=== PATIENT | male | born 1955 | race Caucasian/White ===

== ENCOUNTER 2024-05-12 02:25 | Inpatient (IN) | payer MEDICARE, OTHER, SELFPAY ==
[2024-05-12] VITALS (11 sets, daily range): BP systolic 111–176; BP diastolic 57–102; BMI 30.1; BMI 29.8
[2024-05-12 00:29] LABS: % Basophils 0.1 % (0-2); % Eosinophils 0.1 % (0-6); % Immature Granulocytes 0.9 % (0-0.5); % Lymphocytes 6.3 % (20.5-51.1); % Monocytes 5.8 % (1.7-9.3); % Neutrophils 86.8 % (42.2-75.2); Absolute Immature Granulocytes 0.1 10^3/uL (0-0.05); Absolute Lymphocytes 0.9 10^3/uL (1.2-3.4); Absolute Monocytes 0.8 10^3/uL (0.1-0.6); Absolute Neutrophils 12.2 10^3/uL (1.4-6.5); Hematocrit 42.2 % (39.0-52.0); Hemoglobin 15.1 g/dL (13.0-18.0); Mean Corp Hgb Conc. 35.8 g/dL (33.0-37.0); Mean Corpuscular Hgb 29.8 pg (27.0-31.0); Mean Corpuscular Volume 83.4 fL (80.0-94.0); Mean Platelet Volume 10.9 fL (7.4-10.4); Nucleated Red Blood Cells % 0 % (-); Platelet Count 185 10^3/uL (130-400); Red Blood Cell Count 5.06 10^6/uL (4.70-6.10); Red Cell Dist. Width 13.4 % (11.5-14.5)
--- NOTE | 2024-05-12 00:29 | ED.GENMED ---
History of Present Illness
General
Chief Complaint: Chest Pain
Source: patient and family
Exam Limitations: none
Time Seen by Provider: 05/12/24 00:19
Nursing documentation reviewed up to this point in time: agreed with
History of Present Illness
History of Present Illness:
Pleasant 68-year-old male that presents with chest pain and abdominal pain that began around 7 PM this evening. He did start to vomit. States that the pain is sharp and almost tearing in nature. Denies fever or chills. States he was feeling
normal prior.
Patient in severe distress and diaphoretic. Concern for AAA/thoracic dissection
Past History
Past History
ED Past Medical History: Other (Crohns ds)
Social History
Tobacco: Non-smoker
Alcohol: Occasional
Personal:
Living: with family
Employment: Employed
Phy Exam
General Physical Exam
General Presentation: moderate distress and severe distress
General Skin: warm and diaphoretic
General Habitus: normal
General Mental: alert
General Hydration: appears well hydrated
ENT Exam
ENT Exam: EOMI, pharynx normal, neck supple and normocephalic
Eye Exam
Eye Exam: PERRL, cornea clear and conjunctiva normal
Cardiovascular Exam
Cardiovascular Exam: regular rate/rhythm and no edema
Pulmonary Exam
Pulmonary Exam: lungs clear, no respiratory distress, no rales, no crackles, no rhonchi, no stridor, no wheezing and no cough
Gastrointestinal Exam
Gastrointestinal Exam: normal bowel sounds and tender
Palpation: generalized: Mild tenderness and Moderate tenderness
Neurological Exam
Neurological Exam: alert, oriented x3, no motor deficits and speech normal
Musculoskeletal Exam
Musculoskeletal Exam: full ROM and no edema
Skin Exam
Skin Exam: normal color, warm/dry, no rash and no petechia
Psychiatric Exam
Psychiatric Exam: normal mood/affect
Scores
Heart Score for Chest Pain Patients
STEMI patient?: Not applicable
Course
Orders/Labs/Results
Orders:
Orders
05/12/24 00:21
Cardiac Monitoring- Treatment ONCE
EKG- Treatment ONCE
05/12/24 00:22
CT Chest/abd/pelvis Angio W/wo Urgent
Comment:
Reason For Exam: pain in chest abd, tearing
05/12/24 00:24
Complete Blood Count/With Diff Urgent
Comprehensive Metabolic Panel Urgent
Magnesium Urgent
NT-proBNP Urgent
PTT Urgent
Prothrombin Time Urgent
Troponin I Q3H
05/12/24 00:29
Morphine Sulfate 4 mg IV NOW STA
Ondansetron Injectable [Zofran] 4 mg IV NOW STA
05/12/24 00:30
Electrocardiogram (*1) Q3H
Reason for Study: Chest Pain
05/12/24 00:47
0.9% Sodium Chloride 1000 ml [Nss] 1,000 ml IV BOLUS
05/12/24 01:44
Lactic Acid Urgent
05/12/24 03:30
Electrocardiogram (*1) Q3H
Reason for Study: Chest Pain
Troponin I Q3H
Abnormal Lab Results
05/12/24
00:24
WBC 14.0 H 10^3/uL
(4.8-10.8)
MPV 10.9 H fL
(7.4-10.4)
Abs Immat Gran (auto) 0.1 H 10^3/uL
(0-0.05)
Absolute Neuts (auto) 12.2 H 10^3/uL
(1.4-6.5)
Absolute Lymphs (auto) 0.9 L 10^3/uL
(1.2-3.4)
Absolute Monos (auto) 0.8 H 10^3/uL
(0.1-0.6)
Immature Gran % 0.9 H %
(0-0.5)
Neutrophils % 86.8 H %
(42.2-75.2)
Lymphocytes % 6.3 L %
(20.5-51.1)
BUN 28 H mg/dl
(9-20)
Glucose 123 H mg/dl
(70-99)
Total Bilirubin 1.4 H mg/dl
(0.2-1.3)
05/12/24 00:24
05/12/24 00:24
Vital Signs
Initial and Last Documented VS:
Initial Vital Signs
Temp Pulse Resp BP Pulse Ox
97.8 F 78 20 176/84 97
05/12/24 00:17 05/12/24 00:17 05/12/24 00:17 05/12/24 00:17 05/12/24 00:17
Last Documented Vital Signs
Temp Pulse Resp BP Pulse Ox
97.8 F 78 17 176/98 96
05/12/24 00:17 05/12/24 01:00 05/12/24 01:00 05/12/24 01:00 05/12/24 01:00
*Critical Care Note
Total Time (30-74mins, 75-104mins- exclusive of procedures): Not Applicable
Update Note
Update Note:
Patient in severe chest and abdominal pain. Concern for AAA or thoracic dissection. Will go to CAT scan without lab work results. Will hydrate afterwards
05/12/2024 0143 AM; Chest:
No aortic dissection or other acute aortic syndromes. Thoracic aorta normal in caliber. No gross central PE.
Mild diffuse bronchial wall thickening with scattered areas of mucus plugging. No lung consolidation, pneumothorax or pleural effusion.
Abdomen and pelvis:
Small bowel obstruction with transition point anterior left lower quadrant, likely due to underlying adhesions versus bowel stenosis. Upstream fluid-filled small bowel dilated up to 5.2 cm. Completely decompressed distal small bowel. No
pneumatosis.
Trace free fluid in the right abdomen and pelvis. No abscess or free air.
Cholelithiasis.
No aortic dissection or other acute aortic syndromes. Abdominal aorta normal in caliber. Scattered atheromatous disease. Severe calcification and narrowing at origin of celiac arterial trunk.
Degenerative changes of the spine.
ED Attending Note
-
Portions of this chart may have been created with voice recognition software.� Occasional wrong word or��sound alike� substitutions may have occurred due to the inherent limitations of voice recognition software.
Discharge Plan
Departure
Patient Disposition: Admit
Date of Disposition: 05/12/24
Time of Disposition: 01:43
Admit to: Telemetry
Presentation/result/management discussed w/ accepting MD/DO: Hospitalist
Discharge Problem:
SBO (small bowel obstruction)
Prescriptions:
No Action
multivitamin [One Daily] 1 EACH tablet
1 ea PO DAILY
infliximab [Remicade] 100 MG/10 ML recon soln
IV .[id number]
lkcmnqfgmti-pvjzfazxf-jhn C-Mn 1 TAB tablet
1 tab PO DAILY
cholecalciferol (vitamin D3) [Vitamin D3] 1,000 UNIT capsule
1,000 unit PO DAILY
Referrals:
UNKNOWN - PT DOES,NOT KNOW [Family Provider] -
Interventions
Interventions:
*Risk Screen - Suicide Last Done: 05/12/24 00:15
*General Assessment Last Done: 05/12/24 00:15
*Neglect/Abuse Screening Last Done: 05/12/24 01:11
ED- Fall Risk Assessment Last Done: 05/12/24 00:15
*ED COVID-19 Vaccine History Last Done: 05/12/24 00:15
CC-Cqkylt-Wqzcdackay Assessment Last Done: 05/12/24 00:15
ED- Cardiac Assessment Last Done: 05/12/24 01:12
Discharge Date and Time
Print Language: SWEDISH
[2024-05-12] MEDS: ZOFRAN 4 MG IV ×2 (00:32→04:14)
[2024-05-12] MEDS: MORPHINE SULFATE 4 MG IV (00:32)
[2024-05-12 00:44] LABS: ALT (SGPT) 25 U/L (0-50); AST (SGOT) 26 U/L (17-59); Albumin 4.1 g/dl (3.5-5.0); Alkaline Phosphatase 56 U/L (38-126); Blood Urea Nitrogen 28 mg/dl (9-20); Calcium 9.5 mg/dl (8.4-10.2); Carbon Dioxide 26 mmol/L (22-30); Chloride 103 mmol/L (98-107); Estimated Creatinine Clearance 75 ml/min; Glucose 123 mg/dl (70-99); Potassium 4.6 mmol/L (3.5-5.1); Sodium 137 mmol/L (135-145); Total Bilirubin 1.4 mg/dl (0.2-1.3); Total Protein 6.7 g/dl (6.3-8.2); eGFR > 60.00
[2024-05-12 00:51] LABS: APTT 23.8 Sec (23.4-35.0); INR 1.03; PT 13.3 Sec (11.4-14.6)
[2024-05-12 00:56] LABS: NT-proBNP < 20.0 pg/ml; Troponin I < 0.012 ng/ml
[2024-05-12] MEDS: NSS 1000 IV ×3 (01:07→16:15)
--- NOTE | 2024-05-12 01:54 | HPS.HSE ---
Family Physician
-
Family Physician: NOT KNOW UNKNOWN - PT DOES
Chief Complaint
-
abdominal pain
History of Present Illness
68 M HX Crohn dz sen at ER for CP and abdominal pain
- acute onset started around 7 pm
- pain is described as sharp
- associated with bilious vomiting x 6
- Last BM; liquid around lunch time
- No fever and chills
- last BM
- HX SBO before
- No prior BW surgery
Medical History
Past Medical History
Past Medical History: Reports Other ((Crohns ds)
Past Surgical History: Reports None
Social History
Tobacco: Non-smoker
Alcohol: Occasional
Drug: None
Personal:
Living: With Family
Family History
Family History: Not pertinent
Allergies / Home Medications
Allergies reflects when Allergies were last updated in [employer].
Home Medications with original date entered in [employer]
Allergy/Medication List:
Allergies
Allergy/AdvReac Type Severity Reaction Status Date / Time
No Known Allergies Allergy Verified 05/12/24 00:17
Home Medications
cholecalciferol (vitamin D3) 25 mcg (1,000 unit) capsule (Vitamin D3) 1,000 unit PO DAILY 03/26/19
qvglpxwhriu-aesvzibgp-qqf C-Mn 750 mg-600 mg-55 mg-5 mg tablet 1 tab PO DAILY 03/26/19
infliximab 100 mg intravenous solution (Remicade) mg IV .[id number] 03/26/19
multivitamin (One Daily tablet) 1 ea PO DAILY 03/26/19
Review of Systems
-
Constitutional: Reports No Symptoms
EENT: Reports No Symptoms
Respiratory: Reports No Symptoms
Cardiac: Reports No Symptoms
Abdomen/GI: Reports Abdominal Pain, Nausea and Vomiting; Denies Diarrhea
: Reports No Symptoms
Musculoskeletal: Reports No Symptoms
Skin: Reports No Symptoms
Neurological: Reports No Symptoms
Endocrine: Reports No Symptoms
Hematologic/Lymphatic: Reports No Symptoms
Psych: Reports No Symptoms
Physical Exam
Vital Signs
Vital Signs
Temp Pulse Resp BP Pulse Ox
97.8 F 72 16 145/72 94
05/12/24 00:17 05/12/24 01:45 05/12/24 01:45 05/12/24 01:21 05/12/24 01:45
Physical Exam
General: Well Developed, Well Nourished, Comfortable and Appears in Distress
HEENT: NormoCephalic, Moist mucous membranes and Atraumatic
Respiratory: Clear
Cardiac: S1/S2 and Regular Rhythm; No Murmur or Rub
Breast: Deferred by me
GI: Soft, Non Distended and Tender (mild tenderness ); No Organomegaly
Rectal: Deferred by Provider
Musculoskeletal: No Clubbing, No Cyanosis and No Edema
Skin: No Rash
Neuro: AO x 3 and Nonfocal/grossly intact
Psych: Calm
Laboratory Results
-
05/12/24 00:24
05/12/24 00:24
Laboratory Results
PT 13.3 Sec (11.4-14.6) 05/12/24 00:24
INR 1.03 05/12/24 00:24
APTT 23.8 Sec (23.4-35.0) 05/12/24 00:24
Total Bilirubin 1.4 mg/dl (0.2-1.3) H 05/12/24 00:24
AST 26 U/L (17-59) 05/12/24 00:24
ALT 25 U/L (0-50) 05/12/24 00:24
Alkaline Phosphatase 56 U/L (38-126) 05/12/24 00:24
Troponin I < 0.012 ng/ml 06/23/24 00:24
Data Reviewed
-
CT Scan: Report Reviewed by me
Lab Data: Labs Reviewed by me
Impression/Plan
-
Reviewed VS: Afebrile , BP 148/82 --> 176/98
Data
WCC 14
Unremarkable CMP
TB 1.4
pro BNP < 20
05/12/24 CT AP
- SBO with transition point anterior left lower quadrant, likely due to underlying adhesions vs.bowel stenosis.
- Upstream fluid-filled small bowel dilated up to 5.2 cm.
- Completely decompressed distal small bowel.
- No pneumatosis.
Trace free fluid in the right abdomen and pelvis. No abscess or free air.
Cholelithiasis.
No aortic dissection or other acute aortic syndromes.
Abdominal aorta normal in caliber.
Scattered atheromatous disease.
Severe calcification and narrowing at origin of celiac arterial trunk.
Degenerative changes of the spine.
05/12/2024 CTA Chest:
No aortic dissection or other acute aortic syndromes.
Thoracic aorta normal in caliber.
No gross central PE.
Mild diffuse bronchial wall thickening with scattered areas of mucus plugging.
No lung consolidation, pneumothorax or pleural effusion.
NO PRIOR hospitalist admission:
ASSESSMENT & PLAN
Pending Rx reconciliation
SBO with transition point anterior left lower quadrant. Diff etiology : adhesions vs. bowel stenosis.
No prior HX BW surgery
HX SBO
- associated with bilious vomiting x 6
- Last BM; liquid around lunch time , no flatus since
- Upstream fluid-filled small bowel dilated up to 5.2 cm. Completely decompressed distal small bowel.
- No pneumatosis.
- Hemodynamically stable
- NPO and IVF
- PRN narcotic analgesia
- GS consult
HX Crohns dz on Remicade [id number]
DVT Px: LMWH
Code: Full
IP MS
[2024-05-12 02:09] LABS: Lactic Acid 0.8 mmol/L (0.7-2.0)
--- NOTE | 2024-05-12 03:57 | PTCARENOTE ---
Patient arrived from ED via stretcher, ambulated to bed with standby assist. Patient alert and oriented. Patient c/o severe abdominal pain and requesting pain medication PRN prior to even walking into room. Last dose PRN pain medication given in ED
at 0032, see MAR. Patient did not have relief. Will remain NPO per MD orders. Call mayo within reach, will ring for assist if needed. Will monitor.
[2024-05-12] MEDS: DILAUDID 0.5 MG IV ×3 (04:14→11:45)
--- NOTE | 2024-05-12 04:21 | PTCARENOTE ---
Patient c/o 08/29 'agonizing' pain to abdomen throughout. Patient is responding with groans and grunts, requesting pain medication at this time. Patient also verbalizing he is feeling nauseous with the amount of pain that he is in. Provided patient
with Zofran PRN and Dilaudid PRN per MD orders -- at this time patient is lying flat on his stomach in bed, snoring. IVFs initiated and maintained at this time. Call mayo is within reach. Will continue to monitor.
[2024-05-12 06:57] LABS: INR 1.01; PT 13.1 Sec (11.4-14.6)
[2024-05-12 07:05] LABS: Blood Urea Nitrogen 23 mg/dl (9-20); Calcium 8.5 mg/dl (8.4-10.2); Carbon Dioxide 28 mmol/L (22-30); Chloride 104 mmol/L (98-107); Estimated Creatinine Clearance 84 ml/min; Glucose 110 mg/dl (70-99); Potassium 4.4 mmol/L (3.5-5.1); Sodium 137 mmol/L (135-145); eGFR > 60.00
[2024-05-12 07:11] LABS: Hematocrit 42.2 % (39.0-52.0); Hemoglobin 14.4 g/dL (13.0-18.0); Mean Corp Hgb Conc. 34.1 g/dL (33.0-37.0); Mean Corpuscular Hgb 29.6 pg (27.0-31.0); Mean Corpuscular Volume 86.7 fL (80.0-94.0); Mean Platelet Volume 11.6 fL (7.4-10.4); Platelet Count 153 10^3/uL (130-400); Red Blood Cell Count 4.87 10^6/uL (4.70-6.10); Red Cell Dist. Width 13.2 % (11.5-14.5); White Blood Cell Count 14.3 10^3/uL (4.8-10.8)
[2024-05-12 07:14] LABS: Troponin I < 0.012 ng/ml
[2024-05-12 08:23] LABS: LDH 216 U/L (120-246)
[2024-05-12 08:32] LABS: Lactic Acid 0.6 mmol/L (0.7-2.0)
--- NOTE | 2024-05-12 08:55 | W.PN.HOSP.TC ---
Today's Communication/Plan
-
NPO/IVF
await surgery
consider NGT
increase Dilaudid frequency
Assessment / Plan
Assessment / Plan
pt is a 68 year old male
SBO with transition point anterior left lower quadrant--possibly due to adhesions or stricture from Crohn's acting as SBO--- associated with bilious vomiting x 6--Last BM; liquid around lunch time 05/11, no flatus since--Upstream fluid-filled small
bowel dilated up to 5.2 cm--Completely decompressed distal small bowel--NPO/IVF--may need NGT (will defer to surgery)--increase frequency of dilaudid--await surgery input
HX Crohns dz on Remicade [id number]
DVT proph
CODE STATUS -- FULL CODE
Anticipated Discharge: > 48 hours
Subjective/Interval History
-
Date of Service: May 12, 2024
pt appears in obvious discomfort
Objective Data
-
Labs:
Laboratory Results
05/12/24 05/12/24
00:24 06:15
WBC 14.0 H 14.3 H
Hgb 15.1 14.4
Hct 42.2 42.2
Plt Count 185 153
PT 13.3 13.1
INR 1.03 1.01
APTT 23.8
Sodium 137 137
Potassium 4.6 4.4
Chloride 103 104
Carbon Dioxide 26 28
BUN 28 H 23 H
Creatinine 1.0 0.9
Glucose 123 H 110 H
Calcium 9.5 8.5
Total Bilirubin 1.4 H
AST 26
ALT 25
Alkaline Phosphatase 56
Vital Signs:
max temp for 24 hours
05/12/24
03:59
Temp 97.9 F
Vital Signs
Temp Pulse Resp BP Pulse Ox
97.7 F 85 18 146/87 93
05/12/24 07:00 05/12/24 07:00 05/12/24 07:00 05/12/24 07:00 05/12/24 07:00
I&O
05/11/24 05/12/24 05/13/24
06:59 06:59 06:59
Intake Total 340 / 340
Balance 340 / 340
Review of Systems
-
All other systems: Reviewed and negative
Abdomen/GI: Reports Abdominal Pain and Nausea
Physical Exam
-
General: Well Developed, Well Nourished and Pain
HEENT: Normocephalic and Atraumatic
Respiratory: Clear to Auscultation; Negative Wheezes or Rhonchi
Cardiac: Regular Rhythm and S1/S2; Negative Murmur
GI: Tender and Distended; Negative Soft (firm) or Normal Bowel Sounds (hypoactive bowel sounds)
Musculoskeletal: No Clubbing, No Cyanosis and No Edema
Neuro: Awake
--- NOTE | 2024-05-12 10:03 | CON.GS ---
Medical History
-
Chief Complaint: abdominal pain
History of Present Illness:
Mr. Rose is a 68 yo male with a h/o OA, BPH and Crohn's disease on Remicade (LD one week ago) who presents with acute onset of severe mid to upper abdominal pain yesterday after eating ribs and chicken at a [employer]. He reports intractable vomiting with
onset of pain which caused him to present through the ED for evaluation. He currently denies nausea or vomiting but notes he had some nausea early this am. He notes that pain has improved with IV medications. On exam, he is not tender with minimal
distention. He denies fevers or chills. He reports that his last colonoscopy was some time ago and he is due. He notes that his last Crohn's flare was about 8-10 years ago (3 in his life time requiring hospitalization) and reports his symptoms felt
similar to this. He usually passes several stools qam at baseline which he was able to do yesterday; today, he notes that he has had no passage of stools or flatus.
Past Medical History
Past Medical History: Other (BPH, OA, Crohn's)
Past Surgical History: None
Social History
Tobacco: Non-Smoker
Alcohol: Occasional
Family History
Family History: Reviewed & Not Pertinent
Allergies / Home Medications
Allergy/AdvReac Type Severity Reaction Status Date / Time
No Known Allergies Allergy Verified 05/12/24 00:17
�Medication �Instructions �Recorded �Confirmed �Type
cholecalciferol (vitamin D3) 25 1,000 unit PO DAILY 03/26/19 03/26/19 History
mcg (1,000 unit) capsule (Vitamin
D3)
bxihzubbliq-cbzxaerrd-dyi C-Mn 750 1 tab PO DAILY 03/26/19 03/26/19 History
mg-600 mg-55 mg-5 mg tablet
infliximab 100 mg intravenous mg IV .[id number] 03/26/19 History
solution (Remicade)
multivitamin (One Daily tablet) 1 ea PO DAILY 03/26/19 03/26/19 History
Review of Systems
-
History Source: Patient
All other systems: Negative unless noted
A 10 point review of systems was completed, and was negative except as per HPI.
Physical Exam
Vital Signs
Temp Pulse Resp BP Pulse Ox
97.7 F 85 18 146/87 93
05/12/24 07:00 05/12/24 07:00 05/12/24 07:00 05/12/24 07:00 05/12/24 07:00
05/11/24 05/12/24 05/13/24
06:59 06:59 06:59
Actual Weight 96.814 kg
Body Mass Index (BMI) 29.8
Lab Results
05/12/24 06:15
05/12/24 06:15
WBC 14.3 10^3/uL (4.8-10.8) H 05/12/24 06:15
Hgb 14.4 g/dL (13.0-18.0) 05/12/24 06:15
Hct 42.2 % (39.0-52.0) 05/12/24 06:15
Plt Count 153 10^3/uL (130-400) 05/12/24 06:15
Abs Immat Gran (auto) 0.1 10^3/uL (0-0.05) H 05/12/24 00:24
Neutrophils % 86.8 % (42.2-75.2) H 05/12/24 00:24
Physical Exam
General: Well Developed and Well Nourished
HEENT: Moist Mucous Membranes
Respiratory: Non Labored Respirations
GI: Soft, Non Tender and Distended (mildy with some tympany to the upper abdomen)
Skin: Warm and Dry
Neuro: Awake and Alert
Psych: Calm
Assessment / Plan
-
Mr. Rose is a 68 yo male with a h/o OA, BPH and Crohn's disease well controlled on Remicade (LD one week ago) and no prior abdominal surgeries who presents with acute onset of severe mid to upper abdominal pain yesterday with nausea/vomiting. Last
BM yesterday, but currently denies passage of flatus. CT imaging reviewed with concern for small bowel obstruction with a transition point in the left lower quadrant and fecalization of the small bowel. CRP, LDH, Lactate are not elevated.
Leukocytosis present. Symptoms already improving, but still without passage of flatus. AFVSS.
--Keep NPO for bowel rest. If vomiting recurs would recommend placement of NGT
--Consult placed to GI, need to r/o Crohn's etiology
--Check SBFT with PO contrast
--IVF while NPO
--Medical management as per primary team
[2024-05-12] MEDS: TORADOL 10 MG IV (14:04)
--- NOTE | 2024-05-12 15:58 | CON.GI ---
Consultation
-
Date/Time Consultation Requested: 05/12/24 10:03am
Date/Time Consultation Performed: 05/12/24 3:58pm
Requesting Provider: Laura Cardenas
Performing Provider: Jeremy Perez
Reason for Consultation: SBO, hx Crohns
Medical History
Chief Complaint / HPI
Chief Complaint: SBO, hx Crohns
History of Present Illness:
Patient is a 60-year-old male with a history of Crohn's disease admitted with a small bowel obstruction. He was well until yesterday after eating ribs at his [employer] that were brought by a guest. Following that he developed severe epigastric
pain and vomiting. He began refluxing and tasting the ribs that he had just eaten. Prior to that he was at his baseline. He has a history of Crohn's disease diagnosed in 1994 involving the terminal ileum. He was initially managed with Asacol for
years that was decreased and then he stopped on his own. Following that he flared with abdominal pain and diarrhea. He was put on Humira which did not work. He was switched to Remicade and has been doing well for years on that. He does report
however that he has bowel movements multiple times during the day almost every hour that are loose. He states that this is his baseline. His last colonoscopy was 3 to 4 years ago[address] sees [address] Alvares at [place].
Past Medical History
Past Medical History: Other (Crohn's. BPH)
Past Surgical History: None
Social History
Tobacco: Non-Smoker
Alcohol: Occasional
Family History
Family History: Reviewed & Not Pertinent
Allergies / Home Medications
Allergy/AdvReac Type Severity Reaction Status Date / Time
No Known Allergies Allergy Verified 05/12/24 00:17
�Medication �Instructions �Recorded
cholecalciferol (vitamin D3) 25 1,000 unit PO DAILY 03/26/19
mcg (1,000 unit) capsule (Vitamin
D3)
rvumpexmjft-xwwctetsr-bqu C-Mn 750 1 tab PO DAILY 03/26/19
mg-600 mg-55 mg-5 mg tablet
infliximab 100 mg intravenous mg IV .[id number] 03/26/19
solution (Remicade)
multivitamin (One Daily tablet) 1 ea PO DAILY 03/26/19
Review of Systems
-
All other systems: A 12 pt ROS was Negative except as stated above in HPI
Vital Signs
Temp Pulse Resp BP Pulse Ox
97.7 F 85 18 146/87 96
05/12/24 07:00 05/12/24 07:00 05/12/24 07:00 05/12/24 07:00 05/12/24 08:30
Physical Exam
Exam
General: Well Developed and Well Nourished
HEENT: Normocephalic and Atraumatic
Respiratory: Non Labored Respirations
GI: Soft, Non Distended and Tender (mild, epigastric)
Results
WBC 14.3 10^3/uL (4.8-10.8) H 05/12/24 06:15
Hgb 14.4 g/dL (13.0-18.0) 05/12/24 06:15
Hct 42.2 % (39.0-52.0) 05/12/24 06:15
MCV 86.7 fL (80.0-94.0) 05/12/24 06:15
Plt Count 153 10^3/uL (130-400) 05/12/24 06:15
Absolute Neuts (auto) 12.2 10^3/uL (1.4-6.5) H 05/12/24 00:24
PT 13.1 Sec (11.4-14.6) 05/12/24 06:15
INR 1.01 05/12/24 06:15
APTT 23.8 Sec (23.4-35.0) 05/12/24 00:24
Sodium 137 mmol/L (135-145) 05/12/24 06:15
Potassium 4.4 mmol/L (3.5-5.1) 05/12/24 06:15
Chloride 104 mmol/L (98-107) 05/12/24 06:15
Carbon Dioxide 28 mmol/L (22-30) 05/12/24 06:15
BUN 23 mg/dl (9-20) H 05/12/24 06:15
Creatinine 0.9 mg/dL (0.7-1.3) 05/12/24 06:15
Calcium 8.5 mg/dl (8.4-10.2) 05/12/24 06:15
Total Bilirubin 1.4 mg/dl (0.2-1.3) H 05/12/24 00:24
AST 26 U/L (17-59) 05/12/24 00:24
ALT 25 U/L (0-50) 05/12/24 00:24
Alkaline Phosphatase 56 U/L (38-126) 05/12/24 00:24
Diagnostic Image Results:
Prior GI Procedures:
EGD:
Colonoscopy:
Assessment / Plan
-
Summary: 68yo male hx Crohn's presents with one day n/v, epigastric pain after eating ribs brought to his [employer] by a guest. CT shows SBO. No prior abd surgery. Prior to yesterday he was at his baseline- multiple loose stools per day on
Remicade for years.
Impression:
SBO
Crohn's disease reportedly involving TI. Followed by Dr Alvares
Recommendation:
The sudden onset of the symptoms seems unusual for a Crohn's flare.
He has no prior abdominal surgery, however, and mechanical small bowel obstruction is also a little unusual as well.
Nonetheless I would hold off on steroids or other Crohn's treatments at this time and continue management by general surgery.
Agree with small bowel follow-through which may be helpful.
Will follow
-
-
Thank you for consultation and allowing me to participate in the patient's care. Please call the information systems consultant GI physician during the after hours with any questions or concerns.
[2024-05-12] MEDS: LOVENOX 40 MG SC (18:16)
[2024-05-13] MEDS: NSS 1000 IV ×3 (00:33→20:43)
[2024-05-13] MEDS: TORADOL 10 MG IV (00:50)
[2024-05-13 06:00] VITALS: BMI 29.8
[2024-05-13 06:08] LABS: Hematocrit 37.2 % (39.0-52.0); Hemoglobin 12.7 g/dL (13.0-18.0); Mean Corp Hgb Conc. 34.1 g/dL (33.0-37.0); Mean Corpuscular Hgb 29.5 pg (27.0-31.0); Mean Corpuscular Volume 86.5 fL (80.0-94.0); Mean Platelet Volume 11.8 fL (7.4-10.4); Platelet Count 123 10^3/uL (130-400); Red Cell Dist. Width 13.3 % (11.5-14.5); White Blood Cell Count 6.1 10^3/uL (4.8-10.8)
[2024-05-13 06:27] LABS: ALT (SGPT) 14 U/L (0-50); AST (SGOT) 17 U/L (17-59); Albumin 2.6 g/dl (3.5-5.0); Alkaline Phosphatase 46 U/L (38-126); Blood Urea Nitrogen 20 mg/dl (9-20); Calcium 8.1 mg/dl (8.4-10.2); Carbon Dioxide 25 mmol/L (22-30); Chloride 107 mmol/L (98-107); Estimated Creatinine Clearance 94 ml/min; Glucose 86 mg/dl (70-99); Magnesium 2.1 mg/dl (1.6-2.3); Sodium 136 mmol/L (135-145); Total Bilirubin 1.5 mg/dl (0.2-1.3); Total Protein 4.7 g/dl (6.3-8.2); eGFR > 60.00
[2024-05-13 07:00] VITALS: BP 119/57
--- NOTE | 2024-05-13 07:08 | W.PN.GI.CBS2 ---
Today's Communication / Plan
-
Await return of bowel function
The sudden onset of the symptoms seems unusual for a Crohn's flare.
He has no prior abdominal surgery, however, and mechanical small bowel obstruction is also a little unusual as well.
Nonetheless I would hold off on steroids or other Crohn's treatments at this time. He is improving and may resolve with conservative management
Agree with small bowel follow-through.
F/U with Dr Alvares after d/c
Assessment / Plan
-
Summary: 68yo male hx Crohn's presents with one day n/v, epigastric pain after eating ribs brought to his [employer] by a guest. CT shows SBO. No prior abd surgery. Prior to yesterday he was at his baseline- multiple loose stools per day on
Remicade for years.
Impression:
SBO
Crohn's disease reportedly involving TI. Followed by Dr Alvares
Subjective
Subjective
Date of Service: May 13, 2024
Passing flatus. Feels gurggling in abdomen and feels need to pass BM soon
Objective
Data Reviewed
Laboratory Data:
Laboratory Results
05/13/24 05:24
05/13/24 05:24
Laboratory Results
PT 13.1 Sec (11.4-14.6) 05/12/24 06:15
INR 1.01 05/12/24 06:15
APTT 23.8 Sec (23.4-35.0) 05/12/24 00:24
Magnesium 2.1 mg/dl (1.6-2.3) 05/13/24 05:24
Total Bilirubin 1.5 mg/dl (0.2-1.3) H 05/13/24 05:24
AST 17 U/L (17-59) 05/13/24 05:24
ALT 14 U/L (0-50) 05/13/24 05:24
Alkaline Phosphatase 46 U/L (38-126) 05/13/24 05:24
Vital Signs and I&O:
Vital Signs
Temp Pulse Resp BP Pulse Ox
98.5 F 76 16 111/57 96
05/12/24 23:22 05/12/24 23:22 05/12/24 23:22 05/12/24 23:22 05/12/24 23:22
I&O
05/12/24 05/13/24 05/14/24
06:59 06:59 06:59
Intake Total 340 / 340 1200 / 1200
Balance 340 / 340 1200 / 1200
Physical Exam
Physical Exam
GI: Soft, Non Distended and Non Tender
--- NOTE | 2024-05-13 11:03 | W.PN.CRS1 ---
Today's Communication / Plan
-
clear liquids
SBFT
Assessment/Plan
-
68 yo male with a h/o Crohns disease and on Remicade for years, CT imaging reviewed with concern for small bowel obstruction with a transition point in the left lower quadrant and fecalization of the small bowel
WBC 6.1 from 14.3. Hb 12.7. Vitals normal.
- No acute surgical intervention
- SBFT ordered to assess anastomosis
- Advance diet to clears
- Appreciate GI input
- Pain control - Tylenol/Toradol/Diluadid
- OOB as tolerated
- Follow up with outpatient GI
Subjective Data
Subjective Data
Date of Service: May 13, 2024
Patient states he has flatus and small bowel movements. He feels overall much improved. He denies nausea or vomiting. He has very mild RLQ pain.
Objective Data
-
Vital Signs
Temp Pulse Resp BP Pulse Ox
97.9 F 70 18 119/57 95
05/13/24 07:00 05/13/24 07:00 05/13/24 07:00 05/13/24 07:00 05/13/24 07:00
Intake & Output
05/12/24 05/13/24 05/14/24
06:59 06:59 06:59
Intake Total 340 / 340 1200 / 1200
Balance 340 / 340 1200 / 1200
Intake:
IV fluids (Total) 300 / 300 1200 / 1200
IV piggybacks 40 / 40
Other:
Number of approximated MODERATE 2
amounts of urine
Lab Results
05/13/24 05:24
05/13/24 05:24
Physical Exam
-
General: No Acute Distress and AOx3
Abdomen: Soft, Non Distended and Non Tender (mild RLQ)
Skin: Warm and Dry
--- NOTE | 2024-05-13 13:35 | W.PN.HOSP.TC ---
Today's Communication/Plan
-
await CRS input as to when diet can be advanced
Assessment / Plan
Assessment / Plan
pt is a 68 year old male
SBO - Pt believes he has significantly improved past 24 hrs and would like his diet advanced, anxiously awaiting dc then to follow
call placed to Dr. Perez who deferred diet to CRS, then spoke with CRS and await their input on diet
WBC 14.0-->14.3-->6.1k
05/12 CT scan: 1. No evidence of aortic dissection, aortic aneurysm, or central pulmonary embolism.
2. Findings consistent with small bowel obstruction, transition point in the left lower quadrant. There is bowel wall thickening distal to the transition point, and fecalization of small bowel contents proximal to the transition point. Findings may
be related to inflammatory bowel obstruction (IBD), or less likely adhesions.
3. Small amount of free fluid adjacent to the liver and within the pelvis, likely reactive.
4. Mild prostatic enlargement.
5. Cholelithiasis without evidence of acute cholecystitis.
6. Fat-containing left inguinal hernia.
Small Bowel X-Ray: Small bowel transit time within the limits of normal at approximately 2 hours.
Mildly dilated mid to distal duodenum and proximal ileum, mid to distal ileum within the limits of normal in caliber, transition point difficult to determine likely located in the lower abdomen suggesting a minimal partial approximate mid small
bowel incomplete obstruction.
HX Crohns dz on Remicade [id number]
DVT proph
CODE STATUS -- FULL CODE
Anticipated Discharge: 24 - 48 hours
Subjective/Interval History
-
Date of Service: May 13, 2024
Pt feeling better, asking about advancing diet
Objective Data
-
Labs:
Laboratory Results
05/13/24
05:24
WBC 6.1
Hgb 12.7 L
Hct 37.2 L
Plt Count 123 L
Sodium 136
Potassium 4.0
Chloride 107
Carbon Dioxide 25
BUN 20
Creatinine 0.8
Glucose 86
Calcium 8.1 L
Total Bilirubin 1.5 H
AST 17
ALT 14
Alkaline Phosphatase 46
Vital Signs:
Vital Signs
Temp Pulse Resp BP Pulse Ox
97.9 F 70 18 119/57 95
05/13/24 07:00 05/13/24 07:00 05/13/24 07:00 05/13/24 07:00 05/13/24 07:00
I&O
05/12/24 05/13/24 05/14/24
06:59 06:59 06:59
Intake Total 340 / 340 1200 / 1200
Balance 340 / 340 1200 / 1200
Review of Systems
-
History Source: Patient, Physician (CRS) and Coordinated Provider
Constitutional: Reports No Symptoms
Respiratory: Reports No Symptoms
Cardiac: Reports No Symptoms
Abdomen/GI: Reports Abdominal Pain (markedly diminished) and Diarrhea (passing freq stool)
Genitourinary: Reports No Symptoms
Physical Exam
-
General: Well Developed, Well Nourished and No Apparent Distress
HEENT: Atraumatic and Moist Mucous Membranes
Respiratory: Clear to Auscultation; Negative Wheezes, Rales or Rhonchi
Cardiac: Regular Rhythm and S1/S2
GI: Soft, Normal Bowel Sounds, Tender and Distended (as per pt, significantly decreased past 24 hrs)
[2024-05-13 15:00] VITALS: BP 147/73
--- NOTE | 2024-05-13 15:59 | CM ---
Alert awake oriented patient who lives with his Dalila who lives in a 2 story home with 3 step to enter and 12 steps to bed and bathroom. He is independent in all activities of daily living.Offered VN he declined need.No adaptive devices.
No VN hx /No SNF hx
Pharmacy [facility]
PCP DR Lozada
PLAN Home no anticipated needs
[2024-05-13] MEDS: LOVENOX 40 MG SC (17:07)
[2024-05-13] MEDS: FLOMAX 0.400000000000000022 MG PO (20:22)
[2024-05-13 23:03] VITALS: BP 131/76
[2024-05-14] MEDS: NSS 1000 IV (03:28)
[2024-05-14 05:42] LABS: % Basophils 0.4 % (0-2); % Eosinophils 1.3 % (0-6); % Immature Granulocytes 0.7 % (0-0.5); % Monocytes 12.6 % (1.7-9.3); Absolute Eosinophils 0.1 10^3/uL (0-0.7); Absolute Lymphocytes 1.2 10^3/uL (1.2-3.4); Absolute Monocytes 0.7 10^3/uL (0.1-0.6); Absolute Neutrophils 3.6 10^3/uL (1.4-6.5); Hematocrit 37.7 % (39.0-52.0); Hemoglobin 12.9 g/dL (13.0-18.0); Mean Corp Hgb Conc. 34.2 g/dL (33.0-37.0); Mean Corpuscular Hgb 29.5 pg (27.0-31.0); Mean Corpuscular Volume 86.3 fL (80.0-94.0); Mean Platelet Volume 11.1 fL (7.4-10.4); Nucleated Red Blood Cells % 0 % (-); Platelet Count 134 10^3/uL (130-400); Red Blood Cell Count 4.37 10^6/uL (4.70-6.10); Red Cell Dist. Width 13.1 % (11.5-14.5); White Blood Cell Count 5.6 10^3/uL (4.8-10.8)
[2024-05-14 05:55] VITALS: BMI 29.1
[2024-05-14 06:07] LABS: Blood Urea Nitrogen 14 mg/dl (9-20); Calcium 8.3 mg/dl (8.4-10.2); Carbon Dioxide 29 mmol/L (22-30); Chloride 108 mmol/L (98-107); Estimated Creatinine Clearance 84 ml/min; Glucose 95 mg/dl (70-99); Potassium 3.6 mmol/L (3.5-5.1); Sodium 141 mmol/L (135-145); eGFR > 60.00
[2024-05-14 07:00] VITALS: BP 131/53
--- NOTE | 2024-05-14 07:09 | W.PN.GI.CBS2 ---
Today's Communication / Plan
-
Please see assessment and plan for details.
Assessment / Plan
-
1. Partial small bowel obstruction: Resolved, unclear cause, could have been related to underlying Crohn's disease, though again small bowel follow-through now without specific transition point, tolerating diet without difficulty. He will continue
Remicade per Dr. Alvares and low residue diet. He is okay to DC from GI standpoint.
We will sign off for now, please go back with any further questions.
Subjective
Subjective
Date of Service: May 14, 2024
Patient feeling well overall, tolerated diet without difficulty, having bowel movements, no significant abdominal pain.
Objective
Data Reviewed
Laboratory Data:
Laboratory Results
05/14/24 05:17
05/14/24 05:17
Laboratory Results
PT 13.1 Sec (11.4-14.6) 05/12/24 06:15
INR 1.01 05/12/24 06:15
APTT 23.8 Sec (23.4-35.0) 05/12/24 00:24
Magnesium 2.1 mg/dl (1.6-2.3) 05/13/24 05:24
Total Bilirubin 1.5 mg/dl (0.2-1.3) H 05/13/24 05:24
AST 17 U/L (17-59) 05/13/24 05:24
ALT 14 U/L (0-50) 05/13/24 05:24
Alkaline Phosphatase 46 U/L (38-126) 05/13/24 05:24
Vital Signs and I&O:
Vital Signs
Temp Pulse Resp BP Pulse Ox
98.1 F 79 18 131/76 97
05/13/24 23:03 05/13/24 23:03 05/13/24 23:03 05/13/24 23:03 05/13/24 23:03
I&O
05/13/24 05/14/24 05/15/24
06:59 06:59 06:59
Intake Total 1200 / 1200 2039
Balance 1200 / 1200 2039
Physical Exam
Physical Exam
General: NAD
Abdomen: normal bowel sounds, soft, no tenderness, no masses or bruits, no ascites
[2024-05-14] MEDS: FLOMAX 0.400000000000000022 MG PO (08:19)
--- NOTE | 2024-05-14 11:02 | W.PN.UPDATE ---
Update Note
Progress Note Update
Attempted to see patient but the patient was not present in the room. The patient is tolerating a low residue diet and white count is normal. From our standpoint okay to be discharged and must follow-up with Dr. Alvares with gastroenterology. No
plans for surgery.
--- NOTE | 2024-05-14 12:39 | W.PN.HOSP.TC ---
Today's Communication/Plan
-
dc to home
Assessment / Plan
Assessment / Plan
pt is a 68 year old male
SBO - Pt believes he has further significantly improved past 24 hrs and is tolerating his diet advanced, anxiously awaiting dc
WBC 14.0-->14.3-->6.1-->5.6k
05/12 CT scan: 1. No evidence of aortic dissection, aortic aneurysm, or central pulmonary embolism.
2. Findings consistent with small bowel obstruction, transition point in the left lower quadrant. There is bowel wall thickening distal to the transition point, and fecalization of small bowel contents proximal to the transition point. Findings may
be related to inflammatory bowel obstruction (IBD), or less likely adhesions.
3. Small amount of free fluid adjacent to the liver and within the pelvis, likely reactive.
4. Mild prostatic enlargement.
5. Cholelithiasis without evidence of acute cholecystitis.
6. Fat-containing left inguinal hernia.
Small Bowel X-Ray: Small bowel transit time within the limits of normal at approximately 2 hours.
Mildly dilated mid to distal duodenum and proximal ileum, mid to distal ileum within the limits of normal in caliber, transition point difficult to determine likely located in the lower abdomen suggesting a minimal partial approximate mid small
bowel incomplete obstruction.
HX Crohns dz on Remicade [id number]
DVT proph
CODE STATUS -- FULL CODE
dc now
follow up with Dr. Alvares in near future
Anticipated Discharge: Today
Subjective/Interval History
-
Date of Service: May 14, 2024
Feels well, passing stool. Anxiously awaiting dc
Objective Data
-
Labs:
Laboratory Results
05/14/24
05:17
WBC 5.6
Hgb 12.9 L
Hct 37.7 L
Plt Count 134
Sodium 141
Potassium 3.6
Chloride 108 H
Carbon Dioxide 29
BUN 14
Creatinine 0.9
Glucose 95
Calcium 8.3 L
Vital Signs:
Vital Signs
Temp Pulse Resp BP Pulse Ox
98.2 F 78 18 131/53 94
05/14/24 07:00 05/14/24 07:00 05/14/24 07:00 05/14/24 07:00 05/14/24 07:00
I&O
05/13/24 05/14/24 05/15/24
06:59 06:59 06:59
Intake Total 1200 / 1200 2039
Balance 1200 / 1200 2039
Review of Systems
-
History Source: Patient and Coordinated Provider
Constitutional: Reports No Symptoms
Respiratory: Reports No Symptoms
Cardiac: Reports No Symptoms
Abdomen/GI: Reports Abdominal Pain (markedly diminished) and Diarrhea (passing freq stool)
Genitourinary: Reports No Symptoms
Physical Exam
-
General: Well Developed, Well Nourished and No Apparent Distress
HEENT: Atraumatic and Moist Mucous Membranes
Respiratory: Clear to Auscultation; Negative Wheezes, Rales or Rhonchi
Cardiac: Regular Rhythm and S1/S2
GI: Soft, Normal Bowel Sounds, Tender and Distended (markedly reduced)
--- NOTE | 2024-05-14 12:44 | W.DS.TRANS ---
DC Summary - Senior Clinical Consultant
-
Discharge Instructions:
Instructions:
Stand-Alone Forms:
Changes to Home Medications: No
Discharge Medications:
DC Medications w/original date entered in [id number]
cholecalciferol (vitamin D3) 25 mcg (1,000 unit) capsule (Vitamin D3) 1,000 unit PO DAILY 03/26/19
[id number] C-Mn 750 mg-600 mg-55 mg-5 mg tablet 1 tab PO DAILY 03/26/19
infliximab 100 mg intravenous solution (Remicade) mg IV .[id number] 03/26/19
multivitamin (One Daily tablet) 1 ea PO DAILY 03/26/19
famotidine 20 mg tablet 20 mg PO DAILY PRN Acid Reflux 05/12/24
tadalafil PO 2XD enlarged prostate 05/12/24
tamsulosin 0.4 mg capsule 0.4 mg PO 2XD Urinary Issue 05/12/24
Home Medication Changes
Pending Results: No
[2024-05-14 12:50] VITALS: BP 128/56
--- NOTE | 2024-05-14 14:46 | CM ---
MD entered order for discharge.
drove him home.
Offered VN he declined need.
PLAN Home no needs
== END 2024-05-14 14:27 | disposition home or self-care (01) | DRG 389 ==
LOC: 3 WEST ACU 02:25
PROVIDERS: Internal Medicine; ADMITTING PHYSICIAN Internal Medicine; ATTENDING PHYSICIAN Internal Medicine; CONSULT PHYSICIAN Specialist; CONSULT PHYSICIAN Surgery; EMERGENCY PHYSICIAN Student in an Organized Health Care Education/Training Program; FAMILY PHYSICIAN Family Medicine
DX: K56.609 Unspecified intestinal obstruction, unspecified as to partial versus complete obstruction (principal); K50.90 Crohn's disease, unspecified, without complications; Z79.899 Other long term (current) drug therapy
CPT/HCPCS: 71275; 74174; 74250; 80048; 80053; 83605; 83615; 83735; 83880; 84484; 85025; 85027; 85610; 85730; 86140; 93005; 96374; 96375; 99285; Q9967